=== PATIENT | female | born 1970 | race Caucasian/White ===

== ENCOUNTER 2018-05-08 11:28 | Emergency (ER) | payer OTHER ==
[2018-05-08] MEDS ORDERED: SUCRALFATE 1 GM TABLET ONE (12:14)
[2018-05-08] MEDS ORDERED: SUCRALFATE 1GM/10ML UCUP PO ONE (12:15)
[2018-05-08 12:20] LABS: Absolute Lymphocytes (CBC) 0.8 K/uL (0.7-4.9); Absolute Monocytes 0.5 K/uL (0.1-1.3); Absolute Neutrophil 3.3 K/uL (1.8-8.0); Basophils % 0.5 % (0-1.3); Eosinophils % 1.8 % (0-4.4); Hematocrit 41.8 % (36.0-45.0); MCH 32.1 pg (27.0-35.0); MCV 92.8 fL (80-100); RBC Red Blood Cell Count 4.51 M/uL (3.86-4.86)
--- NOTE | 2018-05-08 12:26 | RAD REPORT ---
EXAM DESCRIPTION: RAD - Chest Single View - 05/08/2018 12:19 pm CLINICAL HISTORY: Chest pain COMPARISON: April 2013 TECHNIQUE: AP portable chest image was obtained 1212 hours . FINDINGS: Lungs are clear. Heart and vasculature are normal. No measurable pleural effusion and no p neumothorax. No acute bony abnormality seen. No acute aortic findings suspected. IMPRESSION: No acute cardiopulmonary process. No significant change from comparison.
[2018-05-08 12:35] LABS: ALT/SGPT 19 U/L (12-78); AST/SGOT 20 U/L (15-37); Albumin 3.5 g/dL (3.4-5.0); Alkaline Phosphatase 54 U/L (45-117); BUN Blood Urea Nitrogen 12 mg/dL (7-18); Bicarbonate 26 mmol/L (21-32); Bilirubin Direct < 0.1 mg/dL (0-0.2); Bilirubin Total 0.3 mg/dL (0.2-1.0); Glucose Level 108 mg/dL (74-106); Lipase 173 U/L (73-393); Potassium 3.3 mmol/L (3.5-5.1); Protein, Total 7.6 g/dL (6.4-8.2); Sodium Level 139 mmol/L (136-145); Troponin (Emerg Dept Use Only) < 0.02 ng/mL (0.0-0.045)
[2018-05-08] MEDS ORDERED: NA CHLORIDE 0.9% 1,000 ML ONE (15:02)
[2018-05-08] MEDS ORDERED: ONDANSETRON 4 MG/2 ML VIAL ONE (15:02)
--- NOTE | 2018-05-08 16:32 | EDPHYS ---
Physician Documentation [facility] Name: Meka Lozano Age: 47 yrs Sex: Female : 1970 Arrival Date: 05/08/2018 Time: 11:30 Bed 15 Private MD: None, None ED Physician Tomi Dutta HPI: 05/08 16:12 This 47 yrs old Female presents to ER via Ambulatory with complaints of Chest gs Pain. 16:12 The patient or guardian reports chest pain that is located primarily in the epigastric gs area. Onset: this morning. The pain does not radiate. Associated signs and symptoms: Pertinent negatives: diaphoresis, shortness of breath. The chest pain is described as burning. Duration: The patient or guardian reports multiple episodes, that are intermittent, that wax and wane, with no pattern, the episodes last approximately 2 minute(s). Modifying factors: The symptoms are alleviated by nothing. the symptoms are aggravated by nothing. Severity of pain: At its worst the pain was moderate in the emergency department the pain has resolved. yesterday this started with vomiting and diarrhea. 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 - Social history:: Smoking status: Patient/guardian denies using tobacco. - Ebola Screening: : No symptoms or risks identified at this time. - Family history:: pertinent for heart disease. ROS: 16:12 All other systems are negative. gs Exam: 16:12 Head/Face: Normocephalic, atraumatic. Eyes: Pupils equal round and reactive to light, gs extra-ocular motions intact. Lids and lashes normal. Conjunctiva and sclera are non-icteric and not injected. Cornea within normal limits. Periorbital areas with no swelling, redness, or edema. ENT: Nares patent. No nasal discharge, no septal abnormalities noted. Tympanic membranes are normal and external auditory canals are clear. Oropharynx with no redness, swelling, or masses, exudates, or evidence of obstruction, uvula midline. Mucous membranes moist. Neck: Trachea midline, no thyromegaly or masses palpated, and no cervical lymphadenopathy. Supple, full range of motion without nuchal rigidity, or vertebral point tenderness. No Meningismus. Chest/axilla: Normal chest wall appearance and motion. Nontender with no deformity. No lesions are appreciated. Cardiovascular: Regular rate and rhythm with a normal S1 and S2. No gallops, murmurs, or rubs. Normal PMI, no JVD. No pulse deficits. Respiratory: Lungs have equal breath sounds bilaterally, clear to auscultation and percussion. No rales, rhonchi or wheezes noted. No increased work of breathing, no retractions or nasal flaring. Abdomen/GI: Soft, non-tender, with normal bowel sounds. No distension or tympany. No guarding or rebound. No evidence of tenderness throughout. Back: No spinal tenderness. No costovertebral tenderness. Full range of motion. Skin: Warm, dry with normal turgor. Normal color with no rashes, no lesions, and no evidence of cellulitis. MS/ Extremity: Pulses equal, no cyanosis. Neurovascular intact. Full, normal range of motion. Neuro: Awake and alert, GCS 15, oriented to person, place, time, and situation. Cranial nerves II-XII grossly intact. Motor strength 5/5 in all extremities. Sensory grossly intact. Cerebellar exam normal. Normal gait. 16:12 Constitutional: The patient appears in no acute distress, alert, awake. 16:12 ECG was reviewed by the Attending Physician. Vital Signs: 11:36 BP 152 / 82; Pulse 96; Resp 16; Temp 98.9(O); Pulse Ox 98% on R/A; Weight 81.65 kg; la1 Height 5 ft. 6 in. (167.64 cm); 12:26 BP 137 / 76; Pulse 82; Resp 17; Pulse Ox 97% on R/A; tw2 13:16 BP 126 / 75; Pulse 73; Resp 20; Pulse Ox 98% on R/A; tw2 14:12 BP 120 / 65; Pulse 72; Resp 18; Pulse Ox 96% on R/A; tw2 15:04 BP 133 / 80; Pulse 70; Resp 17; Pulse Ox 100% on R/A; tw2 16:35 BP 127 / 80; Pulse 68; Resp 17; Pulse Ox 100% on R/A; tw2 11:36 Body Mass Index 29.05 (81.65 kg, 167.64 cm) la1 MDM: 11:49 Patient medically screened. 16:12 Differential diagnosis: acute myocardial infarction, coronary artery disease gs gastroesophageal reflux disease (GERD), pancreatitis, peptic ulcer disease. Data reviewed: vital signs, nurses notes. 16:57 Physician consultation: Jarred Jason MD regarding consult, patient's condition, ekg gs findings, says sent to office on monday. 17:35 Response to treatment: the patient's symptoms have resolved after treatment, the gs patient's pain is gone, the patient's condition has returned to base line. 05/08 12:01 Order name: LFT's 05/08 12:01 Order name: Basic Metabolic Panel 05/08 12:01 Order name: CBC with Diff; Complete Time: 12:39 05/08 12:01 Order name: Troponin (emerg Dept Use Only); Complete Time: 12:39 05/08 12:01 Order name: Lipase; Complete Time: 12:39 05/08 12:01 Order name: Liver (Hepatic) Function; Complete Time: 12:39 EDMS 05/08 12:01 Order name: XRAY Chest (1 view); Complete Time: 12:39 05/08 12:01 Order name: Basic Metabolic Panel; Complete Time: 12:39 EDMS 05/08 14:31 Order name: Troponin (emerg Dept Use Only); Complete Time: 15:58 05/08 14:57 Order name: Urine Microscopic Only; Complete Time: 16:54 05/08 16:37 Order name: Urine Dipstick--Ancillary (enter results); Complete Time: 16:54 05/08 16:37 Order name: Urine --Ancillary (enter results); Complete Time: 16:54 05/08 12:01 Order name: EKG; Complete Time: 12:01 05/08 12:01 Order name: Cardiac monitoring; Complete Time: 12:06 05/08 12:01 Order name: EKG - Nurse/Tech; Complete Time: 12:06 05/08 12:01 Order name: IV Saline Lock; Complete Time: 12:06 05/08 12:01 Order name: Labs collected and sent; Complete Time: 12:06 05/08 12:01 Order name: O2 Per Protocol; Complete Time: 12:06 05/08 12:01 Order name: O2 Sat Monitoring; Complete Time: 12: 05/08 14:57 Order name: Urine Dipstick-Ancillary (obtain specimen); Complete Time: 16:34 gs EC:12 Rate is 92 beats/min. Rhythm is regular. NC interval is normal. QRS interval is normal. gs No Q waves. T waves are Flattened. No ST changes noted. Clinical impression: Abnormal EKG without significant change. Interpreted by me. Administered Medications: 12:40 Drug: CarafATE 1 grams {Note: liquid medication available at this time from pharmacy.} tw2 Route: PO; 13:48 Follow up: Response: No adverse reaction tw2 15:00 Drug: Zofran 4 mg Route: IVP; Site: right antecubital; tw2 16:35 Follow up: Response: No adverse reaction tw2 15:03 Drug: NS 0.9% 1000 ml Route: IV; Rate: 1 bolus; Site: right antecubital; tw2 16:34 Follow up: IV Status: Completed infusion; IV Intake: 1000ml tw2 Disposition: 05/08/18 16:31 Discharged to Home. Impression: Vomiting, Diarrhea, unspecified, Chest pain, unspecified. - Condition is Stable. - Discharge Instructions: Nonspecific Chest Pain, Diarrhea, Adult, Nausea and Vomiting, Adult. - Prescriptions for Pepcid 20 mg Oral Tablet - take 1 tablet by ORAL route every 12 hours for 10 days; 20 tablet. - Work release form, Medication Reconciliation Form, Thank You Letter, Antibiotic Education, Prescription Opioid Use form. - Follow up: Private Physician; When: 1 - 2 days; Reason: Re-evaluation by your physician. - Problem is new. - Symptoms have improved. Signatures: Dispatcher [employer] EDMS Dexter Connors RN RN la1 Lennie Burrell RN RN tw2 Tomi Dutta MD MD Corrections: (The following items were deleted from the chart) 17:15 16:31 05/08/2018 16:31 Discharged to Home. Impression: Vomiting; Diarrhea, unspecified; tw2 Chest pain, unspecified. Condition is Stable. Forms are Work release form, Medication Reconciliation Form, Thank You Letter, Antibiotic Education, Prescription Opioid Use. Follow up: Private Physician; When: 1 - 2 days; Reason: Re-evaluation by your physician. Problem is new. Symptoms have improved. gs
--- NOTE | 2018-05-08 16:32 | ER ---
Nurse's Notes [facility] Name: Meka Lozano Age: 47 yrs Sex: Female : 1970 Arrival Date: 05/08/2018 Time: 11:30 Bed 15 Private MD: None, None Diagnosis: Vomiting;Diarrhea, unspecified;Chest pain, unspecified Presentation: 05/08 11:34 Presenting complaint: Patient states: Yesterday morning I was having nausea and la1 vomiting and this morning I woke up with an intermittent burning sensation in my chest. Transition of care: patient was not received from another setting of care. Onset of symptoms was May 08, 2018. Risk Assessment: Do you want to hurt yourself or someone else? Patient reports no desire to harm self or others. Initial Sepsis Screen: Does the patient meet any 2 criteria? No. Patient's initial sepsis screen is negative. Does the patient have a suspected source of infection? No. Patient's initial sepsis screen is negative. Care prior to arrival: None. 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 - Social history:: Smoking status: Patient/guardian denies using tobacco. - Ebola Screening: : No symptoms or risks identified at this time. - Family history:: pertinent for heart disease. Screenin:42 Abuse screen: Denies threats or abuse. Nutritional screening: No deficits noted. tw2 Tuberculosis screening: No symptoms or risk factors identified. Fall Risk None identified. Assessment: 11:45 General: Appears in no apparent distress. well groomed, Behavior is calm, cooperative, tw2 appropriate for age. Pain: Complains of pain in chest Pain radiates to left arm and neck Pain began 1 day ago. Neuro: Level of Consciousness is awake, alert, obeys commands, Oriented to person, place, time, situation. Cardiovascular: Heart tones S1 S2 Patient's skin is warm and dry. Respiratory: Airway is patent Respiratory effort is even, unlabored, Respiratory pattern is regular, symmetrical, Breath sounds are clear bilaterally. GI: Abdomen is flat, Bowel sounds present X 4 quads. GI: Reports indigestion, nausea. : No signs and/or symptoms were reported regarding the genitourinary system. EENT: No signs and/or symptoms were reported regarding the EENT system. Derm: No signs and/or symptoms reported regarding the dermatologic system. Musculoskeletal: Range of motion: intact in all extremities. 12:26 Reassessment: Patient appears in no apparent distress at this time. No changes from tw2 previously documented assessment. Patient and/or family updated on plan of care and expected duration. Pain level reassessed. Patient is alert, oriented x 3, equal unlabored respirations, skin warm/dry/pink. 13:17 Reassessment: Patient appears in no apparent distress at this time. No changes from tw2 previously documented assessment. Patient and/or family updated on plan of care and expected duration. Pain level reassessed. Patient is alert, oriented x 3, equal unlabored respirations, skin warm/dry/pink. 14:13 Reassessment: Patient appears in no apparent distress at this time. No changes from tw2 previously documented assessment. Patient and/or family updated on plan of care and expected duration. Pain level reassessed. Patient is alert, oriented x 3, equal unlabored respirations, skin warm/dry/pink. pt asking for jello at this time, per provider it is fine to give pt jello. 15:04 Reassessment: Patient appears in no apparent distress at this time. Patient and/or tw2 family updated on plan of care and expected duration. Pain level reassessed. Patient is alert, oriented x 3, equal unlabored respirations, skin warm/dry/pink. pt c/o nausea, provider notified and medicated as ordered. 16:00 Reassessment: Patient appears in no apparent distress at this time. No changes from tw2 previously documented assessment. Patient and/or family updated on plan of care and expected duration. Pain level reassessed. Patient is alert, oriented x 3, equal unlabored respirations, skin warm/dry/pink. 16:41 Reassessment: Patient appears in no apparent distress at this time. No changes from tw2 previously documented assessment. Patient and/or family updated on plan of care and expected duration. Pain level reassessed. Patient is alert, oriented x 3, equal unlabored respirations, skin warm/dry/pink. Dr. Dutta at bedside at this time. 17:13 Reassessment: Patient appears in no apparent distress at this time. No changes from tw2 previously documented assessment. Patient and/or family updated on plan of care and expected duration. Pain level reassessed. Patient is alert, oriented x 3, equal unlabored respirations, skin warm/dry/pink. Patient denies pain at this time. OK to discharge at this time per Dr. Dutta. Vital Signs: 11:36 BP 152 / 82; Pulse 96; Resp 16; Temp 98.9(O); Pulse Ox 98% on R/A; Weight 81.65 kg; la1 Height 5 ft. 6 in. (167.64 cm); 12:26 BP 137 / 76; Pulse 82; Resp 17; Pulse Ox 97% on R/A; tw2 13:16 BP 126 / 75; Pulse 73; Resp 20; Pulse Ox 98% on R/A; tw2 14:12 BP 120 / 65; Pulse 72; Resp 18; Pulse Ox 96% on R/A; tw2 15:04 BP 133 / 80; Pulse 70; Resp 17; Pulse Ox 100% on R/A; tw2 16:35 BP 127 / 80; Pulse 68; Resp 17; Pulse Ox 100% on R/A; tw2 11:36 Body Mass Index 29.05 (81.65 kg, 167.64 cm) la1 ED Course: 11:30 Patient arrived in ED. mr 11:31 None, None is Private Physician. mr 11:35 Triage completed. la1 11:36 Arm band placed on right wrist. la1 11:38 Tomi Dutta MD is Attending Physician. gs 11:41 Lennie Burrell, [place] is Primary Nurse. tw2 11:42 Bed in low position. Call light in reach. monitor and storage bin tender on. Pulse ox on. NIBP on. tw2 11:42 Patient maintains SpO2 saturation greater than 95% on room air. tw2 12:03 EKG done, by avionic technician. reviewed by Tomi Dutta MD. at1 12:14 Placed in gown. Warm blanket given. mh5 12:16 X-ray completed. Portable x-ray completed in exam room. Patient tolerated procedure ml well. 12:18 XRAY Chest (1 view) In Process Unspecified. EDMS 14:23 LFT's Sent. tw2 14:23 Basic Metabolic Panel Sent. tw2 14:44 Inserted butterfly 23g for repeat troponin to right hand at this time. tw2 16:37 Awaiting: awaiting discharge papers at this time with script, Dr. Dutta on phone at tw2 this time, discharge is not complete. 16:52 Awaiting: after conversation with Dr. Dutta, pt would like Dr. Jason to be notified tw2 at this time, DISCHARGE IS STILL PENDING AT THIS TIME. 17:13 No provider procedures requiring assistance completed. IV discontinued, intact, tw2 bleeding controlled, No redness/swelling at site. Pressure dressing applied. Administered Medications: 12:40 Drug: CarafATE 1 grams {Note: liquid medication available at this time from pharmacy.} tw2 Route: PO; 13:48 Follow up: Response: No adverse reaction tw2 15:00 Drug: Zofran 4 mg Route: IVP; Site: right antecubital; tw2 16:35 Follow up: Response: No adverse reaction tw2 15:03 Drug: NS 0.9% 1000 ml Route: IV; Rate: 1 bolus; Site: right antecubital; tw2 16:34 Follow up: IV Status: Completed infusion; IV Intake: 1000ml tw2 Intake: 16:34 IV: 1000ml; Total: 1000ml. tw2 Outcome: 16:31 Discharge ordered by . 17:15 Discharged to home ambulatory. tw2 17:15 Condition: stable 17:15 Discharge instructions given to patient, Instructed on discharge instructions, follow up and referral plans. medication usage, Demonstrated understanding of instructions, follow-up care, medications, Prescriptions given X 1. 17:15 Patient left the ED. tw2 Signatures: Dispatcher [employer] EDOK MonroyNettie mr Martinez, Carmen Nagel, supervising producer EKG Tat1 Dexter Connors RN RN la1 Lennie Burrell RN RN tw2 Camila Rodriges [facility] Tomi Dutta MD MD gs
[2018-05-08 16:46] LABS: Urine Blood 2+ (NEG); Urine Glucose NEGATIVE (NEG); Urine Protein NEGATIVE (NEG)
[2018-05-08 16:46] LABS: Urine Amorphous Sediment 1+ /HPF (NONE SEEN); Urine Bacteria NONE SEEN /HPF (<20); Urine Culture Reflex Order NOT NEEDED
[2018-05-08 17:21] VITALS: TEMP 98.9
[2018-05-08 17:26] VITALS: O2SAT 100
[2018-05-08 17:28] VITALS: BP 127/80
--- NOTE | 2018-05-09 04:42 | EKG ---
Test Date: 2018-05-08 Test Time: 11:51:42 Grinder Set Up Operator Gear Tool: RENATA MEASUREMENT RESULTS: Intervals: Rate: 92 WY: 128 QRSD: 76 QT: 402 QTc: 497 Talmage: P: 23 WY: 128 QRS: 25 T: -16 INTERPRETIVE STATEMENTS: Normal sinus rhythm T wave abnormality, consider inferior ischemia T wave abnormality, consider anterior ischemia Prolonged QT Abnormal ECG Compared to ECG 04/29/2013 07:11:51 T-wave abnormality now present Possible ischemia now present Prolonged QT interval now present Electronically Signed On 05-09-18 04:41:43 CDT by Jarred Jason
== END 2018-05-08 17:15 | disposition home or self-care (01) ==
LOC: ER 11:28
DX: R11.10 Vomiting, unspecified (principal); R19.7 Diarrhea, unspecified; I10 Essential (primary) hypertension
CPT/HCPCS: 36415; 71045; 80048; 80076; 81003; 81015; 81025; 83690; 84484; 85025; 93005; 96361; 96374; 99285; J2405; J7030

== ENCOUNTER 2021-01-24 15:09 | Emergency (ER) | payer OTHER ==
--- OUTSIDE RECORDS SUMMARY | 2021-01-24 15:12 | XMS REPORT | Continuity of Care Document ---
:1970 Author Organization [facility] t Address [address] [place] [address] Care Team Providers Name Role Phone Doctor Unassigned, Name Attending Clinician Unavailable Problems This patient has no known problems. Allergies, Adverse Reactions, Alerts This patient has no known allergies or adverse reactions. Medications This patient has no known medications. Procedures This patient has no known procedures. Encounters Start End Encounter Admission Attending Care Care Encounter Source Date/Time Date/Time Type Type Clinicians Facility Department ID 2020-10-02 2020-10-02 Orders Doctor PERDOMO [id number] 00:00:00 00:00:00 Only UnassignedSYMONE [id number] [place] [facility] [id number] 2020-08-05 2020-08-05 Orders Doctor CONOR [id number] 00:00:00 00:00:00 Only UnassignedSYMONE [id number] [place] [facility] [id number] Results This patient has no known results.
[2021-01-24 15:54] LABS: Urine Blood Trace-lysed (Negative); Urine Glucose Negative (Negative); Urine Protein Negative (Negative); Urine Specific Gravity 1.025 (1.005-1.030)
[2021-01-24 16:09] LABS: Basophils % 0.5 % (0-1.3); Hematocrit 36.4 % (36.0-45.0); Lymphocytes % 37.3 % (15.3-44.8); RBC Red Blood Cell Count 3.97 M/uL (3.86-4.86)
--- NOTE | 2021-01-24 16:09 | RAD REPORT ---
EXAM DESCRIPTION: CT - Abdomen Pelvis W Contrast - 01/24/2021 3:59 pm CLINICAL HISTORY: Abdominal pain COMPARISON: 2008 TECHNIQUE: Computed axial tomography of the abdomen pelvis was obtained. 100 cc Isovue-300 was admin istered intravenously. Oral contrast was not requested which limits evaluation of bowel. All CT scans are performed using dose optimization technique as appropriate and may include automated exposure control or mA/KV adjustment according to patient size. FINDINGS: The liver, spleen, pancreas, and adrenals appear unremarkable. There is no evidence of diverticulitis. Normal appendix. Bilateral renal calculi. Mild left hydronephrosis. 5 millimeter calculus proximal left ureter. Mild d elay concentration of contrast within the left kidney IMPRESSION: 5 millimeter calculus proximal left ureter resulting in mild left hydronephrosis
[2021-01-24 16:25] LABS: ALT/SGPT 29 U/L (12-78); AST/SGOT 26 U/L (15-37); Albumin 3.1 g/dL (3.4-5.0); Alkaline Phosphatase 65 U/L (45-117); BUN Blood Urea Nitrogen 8 mg/dL (7-18); Bicarbonate 26 mmol/L (21-32); Bilirubin Direct < 0.1 mg/dL (0-0.2); Bilirubin Total 0.2 mg/dL (0.2-1.0); Glucose Level 82 mg/dL (74-106); Lipase 103 U/L (73-393); Potassium 3.3 mmol/L (3.5-5.1); Sodium Level 142 mmol/L (136-145)
[2021-01-24] MEDS ORDERED: ONDANSETRON 4 MG/2 ML VIAL ONE ×2 (16:27→18:54)
[2021-01-24] MEDS ORDERED: NA CHLORIDE 0.9% 1,000 ML ONE (16:27)
[2021-01-24] MEDS ORDERED: MORPHINE 4 MG/ML SYR ONE (16:27)
[2021-01-24] MEDS ORDERED: KETOROLAC 30 MG/ML INJ ONE (16:51)
[2021-01-24 17:08] LABS: Urine Specific Gravity/Preg 1.025 (1.005-1.030)
[2021-01-24 17:08] LABS: Urine Bacteria 20-50 /HPF (<20); Urine RBC <5 /HPF (NONE SEEN)
--- NOTE | 2021-01-24 17:18 | ER ---
Nurse's Notes [facility] Name: Meka Lozano Age: 50 yrs Sex: Female : 1970 Arrival Date: 01/24/2021 Time: 15:11 Bed 24 Private MD: Diagnosis: Calculus of kidney with calculus of ureter Presentation: 01/24 15:18 Chief complaint: Patient states: Was diagnosed with UTI Monday, started taking Bactrim ca1 Monday. [place] better but today, been having pain on the L side front and back. 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 Coronavirus screen: Client denies travel out of the [place] in the last 14 days. At this time, the client does not indicate any symptoms associated with coronavirus-19. Ebola Screen: Patient negative for fever greater than or equal to 101.5 degrees Fahrenheit, and additional compatible Ebola Virus Disease symptoms Patient denies exposure to infectious person. Patient denies travel to an Ebola-affected area in the 21 days before illness onset. No symptoms or risks identified at this time. Initial Sepsis Screen: Does the patient meet any 2 criteria? No. Patient's initial sepsis screen is negative. Does the patient have a suspected source of infection? No. Patient's initial sepsis screen is negative. Risk Assessment: Do you want to hurt yourself or someone else? Patient reports no desire to harm self or others. Onset of symptoms was January 24, 2021. 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 - Social history:: Smoking status: Patient denies any tobacco usage or history of. Screenin:33 Abuse screen: Denies threats or abuse. Denies injuries from another. Nutritional zb screening: No deficits noted. Tuberculosis screening: No symptoms or risk factors identified. Fall Risk None identified. Assessment: 15:25 General: Appears uncomfortable, Behavior is calm, cooperative, appropriate for age. zb Pain: Complains of pain in groin, left femoral area and left inguinal area Pain currently is 8 out of 10 on a pain scale. Neuro: Level of Consciousness is awake, alert, obeys commands, Oriented to person, place, time. Cardiovascular: Patient's skin is warm and dry. Respiratory: Airway is patent Respiratory effort is even, unlabored, Respiratory pattern is regular, symmetrical. : Denies pain in left lower quadrant(s) in lower back. Derm: Skin is intact, is healthy with good turgor, Skin is dry, Skin is normal. Musculoskeletal: Range of motion: intact in all extremities. 16:33 Reassessment: Patient appears in no apparent distress at this time. Patient and/or zb family updated on plan of care and expected duration. Pain level reassessed. Patient is alert, oriented x 3, equal unlabored respirations, skin warm/dry/pink. APPEARS TO BE IN PAIN, GIVEN MEDICATION PER ECP. 16:52 Reassessment: ECP at bedside discussing care with patient. zb 17:38 Reassessment: Patient appears in no apparent distress at this time. Patient and/or zb family updated on plan of care and expected duration. Pain level reassessed. Patient is alert, oriented x 3, equal unlabored respirations, skin warm/dry/pink. IV fluid infusing. patient appears to be more comfortable. family at bedside. Reassessment: d/c pending IV medication completion. 18:00 Reassessment: Patient appears in no apparent distress at this time. Patient and/or zb family updated on plan of care and expected duration. Pain level reassessed. Patient is alert, oriented x 3, equal unlabored respirations, skin warm/dry/pink. 18:40 Reassessment: Iv fluid completed. d/c instruction given. c/o nausea. notified ecp zb medication ordered and given. Vital Signs: 15:18 BP 145 / 75; Pulse 73; Resp 18 S; Temp 98.1(TE); Pulse Ox 99% on R/A; Weight 78.02 kg ca1 (R); Height 5 ft. 6 in. (167.64 cm) (R); Pain 6/10; 16:33 BP 145 / 74; Pulse 71; Resp 16; Pulse Ox 100% on R/A; zb 17:37 BP 153 / 77; Pulse 71; Resp 16; Pulse Ox 100% on R/A; zb 18:40 BP 144 / 87; Pulse 88; Resp 16; Pulse Ox 100% on R/A; zb 15:18 Body Mass Index 27.76 (78.02 kg, 167.64 cm) ca1 ED Course: 15:11 Patient arrived in ED. as 15:20 Triage completed. ca1 15:20 Arm band placed on right wrist. ca1 15:25 Annie Orellana, FLORENCE is Primary Nurse. zb 15:27 Fozia Rich FNP-C is PHCP. kb 15:28 Bryson Chapman MD is Attending Physician. kb 15:33 Patient has correct armband on for positive identification. Bed in low position. Call zb light in reach. Pulse ox on. NIBP on. Door closed. Noise minimized. 16:00 CT Abd/Pelvis - IV Contrast Only In Process Unspecified. EDMS 16:30 Initial lab(s) drawn, by me, sent to lab. Inserted saline lock: 20 gauge in right zb antecubital area, using aseptic technique. Blood collected. 17:21 Louie Granados MD is Referral Physician. kb 17:21 Kelvin Salgado MD is Referral Physician. kb 18:41 No provider procedures requiring assistance completed. IV discontinued, intact, zb bleeding controlled, No redness/swelling at site. Pressure dressing applied. Administered Medications: 16:20 Drug: NS 0.9% 1000 ml Route: IV; Rate: 1000 ml; Site: right antecubital; zb 17:37 Follow up: Response: No adverse reaction; IV Status: Completed infusion; IV Intake: zb 1000ml 16:20 Drug: morphine 4 mg {Note: RASS+1.} Route: IVP; Site: right antecubital; zb 17:00 Follow up: Response: No adverse reaction; Marked relief of symptoms; Pain is decreased; zb RASS: Restless (+1) 16:20 Drug: Zofran (Ondansetron) 4 mg Route: IVP; Site: right antecubital; zb 17:00 Follow up: Response: No adverse reaction; Marked relief of symptoms zb 16:31 Drug: Ketorolac 30 mg Route: IVP; Site: right antecubital; zb 17:00 Follow up: Response: No adverse reaction; Marked relief of symptoms; Pain is decreased zb 17:36 Drug: Flomax (tamsulosin) 0.4 mg Route: PO; zb 17:37 Follow up: Response: No adverse reaction; Marked relief of symptoms zb 17:36 Drug: Magnesium Sulfate 1 grams Route: IVPB; Infused Over: 30 mins; Site: right zb antecubital; 18:39 Follow up: Response: No adverse reaction; Marked relief of symptoms; IV Status: zb Completed infusion; IV Intake: 100ml 17:36 Drug: Potassium Chloride 20 mEq Route: PO; zb 18:39 Follow up: Response: No adverse reaction zb 18:39 Drug: Zofran (Ondansetron) 4 mg Route: IVP; Site: right antecubital; zb 18:40 Follow up: Response: Medication administered at discharge. zb Intake: 17:37 IV: 1000ml; Total: 1000ml. zb 18:39 IV: 100ml; Total: 1100ml. zb Outcome: 17:18 Discharge ordered by . kb 18:41 Discharged to home ambulatory. zb 18:41 Condition: stable 18:41 Discharge instructions given to patient, Instructed on discharge instructions, follow up and referral plans. medication usage, Demonstrated understanding of instructions, follow-up care, medications, Prescriptions given X 4. 18:41 Patient left the ED. zb Signatures: Dispatcher [employer] EDFozia Vick, ARTURO MEJIA-Carla Scanlon Cheryl, RN RN ca1 Brown, Zipporah, RN RN zb Corrections: (The following items were deleted from the chart) 15:21 15:20 PSHx: None; ca1 ca1
--- NOTE | 2021-01-24 17:19 | EDPHYS ---
Physician Documentation [facility] Name: Meka Lozano Age: 50 yrs Sex: Female : 1970 Arrival Date: 01/24/2021 Time: 15:11 Bed 24 Private MD: ED Physician Bryson Chapman HPI: 01/24 17:12 This 50 yrs old Female presents to ER via Ambulatory with complaints of Flank kb Pain, Urinary Problem - antibiotics not working. 17:12 The patient complains of pain in the left flank. The pain radiates to the left lower kb quadrant. Onset: The symptoms/episode began/occurred today. Modifying factors: The symptoms are alleviated by nothing. the symptoms are aggravated by nothing. Associated signs and symptoms: The patient has no apparent associated signs or symptoms. Severity of pain: At its worst the pain was moderate in the emergency department the pain is unchanged. The patient has not experienced similar symptoms in the past. The patient has not recently seen a physician. Pt was diagnosed with UTI in [place] on Monday, had urine, blood and CT done. States she started feeling better with antibiotics, but today started having pain on the left side. . 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 - Social history:: Smoking status: Patient denies any tobacco usage or history of. ROS: 17:10 Constitutional: Negative for fever, chills, and weight loss. kb 17:10 : Positive for flank pain, of the left flank. 17:10 All other systems are negative. Exam: 17:12 Constitutional: This is a well developed, well nourished patient who is awake, alert, kb and in no acute distress. Head/Face: Normocephalic, atraumatic. ENT: Moist Mucous membranes Cardiovascular: Regular rate and rhythm with a normal S1 and S2. No gallops, murmurs, or rubs. No pulse deficits. Respiratory: Respirations even and unlabored. No increased work of breathing, no retractions or nasal flaring. Abdomen/GI: Soft, non-tender. No distention Skin: Warm, dry with normal turgor. Normal color. MS/ Extremity: Pulses equal, no cyanosis. Neurovascular intact. Full, normal range of motion. Neuro: Awake and alert, GCS 15, oriented to person, place, time, and situation. Moves all extremities. Normal gait. Psych: Awake, alert, with orientation to person, place and time. Behavior, mood, and affect are within normal limits. 17:12 Back: CVA tenderness, that is moderate, is noted on the left. Vital Signs: 15:18 BP 145 / 75; Pulse 73; Resp 18 S; Temp 98.1(TE); Pulse Ox 99% on R/A; Weight 78.02 kg ca1 (R); Height 5 ft. 6 in. (167.64 cm) (R); Pain 6/10; 16:33 BP 145 / 74; Pulse 71; Resp 16; Pulse Ox 100% on R/A; zb 17:37 BP 153 / 77; Pulse 71; Resp 16; Pulse Ox 100% on R/A; zb 18:40 BP 144 / 87; Pulse 88; Resp 16; Pulse Ox 100% on R/A; zb 15:18 Body Mass Index 27.76 (78.02 kg, 167.64 cm) ca1 MDM: 15:28 Patient medically screened. kb 17:02 Data reviewed: vital signs, nurses notes. Data interpreted: Pulse oximetry: on room air kb is 100 %. Interpretation: normal. Counseling: I had a detailed discussion with the patient and/or guardian regarding: the historical points, exam findings, and any diagnostic results supporting the discharge/admit diagnosis, lab results, radiology results, the need for outpatient follow up, a urologist, to return to the emergency department if symptoms worsen or persist or if there are any questions or concerns that arise at home. 17:02 ED course: Pain is controlled. Pt will call to make appt with urologist tomorrow. kb 17:09 ED course: pt will continue previously prescribed antibiotics. . kb 01/24 15:28 Order name: Basic Metabolic Panel; Complete Time: 16:51 kb 01/24 15:28 Order name: CBC with Diff kb 01/24 15:28 Order name: Hepatic Function; Complete Time: 16:51 kb 01/24 15:28 Order name: Lipase; Complete Time: 16:51 kb 01/24 15:28 Order name: Urine Microscopic Only; Complete Time: 17:09 kb 01/24 15:54 Order name: Urine Dipstick-Ancillary; Complete Time: 15:59 EDMS 01/24 15:28 Order name: CT Abd/Pelvis - IV Contrast Only; Complete Time: 16:15 kb 01/24 16:04 Order name: Urine --Ancillary (enter results) em1 01/24 16:05 Order name: Urine --Ancillary; Complete Time: 17:09 EDMS 01/24 17:09 Order name: Urine Culture EDMS 01/24 15:28 Order name: IV Saline Lock; Complete Time: 15:41 kb 01/24 15:28 Order name: Labs collected and sent; Complete Time: 15:41 kb 01/24 15:28 Order name: Urine Dipstick-Ancillary (obtain specimen); Complete Time: 16:02 kb Administered Medications: 16:20 Drug: NS 0.9% 1000 ml Route: IV; Rate: 1000 ml; Site: right antecubital; zb 17:37 Follow up: Response: No adverse reaction; IV Status: Completed infusion; IV Intake: zb 1000ml 16:20 Drug: morphine 4 mg {Note: RASS+1.} Route: IVP; Site: right antecubital; zb 17:00 Follow up: Response: No adverse reaction; Marked relief of symptoms; Pain is decreased; zb RASS: Restless (+1) 16:20 Drug: Zofran (Ondansetron) 4 mg Route: IVP; Site: right antecubital; zb 17:00 Follow up: Response: No adverse reaction; Marked relief of symptoms zb 16:31 Drug: Ketorolac 30 mg Route: IVP; Site: right antecubital; zb 17:00 Follow up: Response: No adverse reaction; Marked relief of symptoms; Pain is decreased zb 17:36 Drug: Flomax (tamsulosin) 0.4 mg Route: PO; zb 17:37 Follow up: Response: No adverse reaction; Marked relief of symptoms zb 17:36 Drug: Magnesium Sulfate 1 grams Route: IVPB; Infused Over: 30 mins; Site: right zb antecubital; 18:39 Follow up: Response: No adverse reaction; Marked relief of symptoms; IV Status: zb Completed infusion; IV Intake: 100ml 17:36 Drug: Potassium Chloride 20 mEq Route: PO; zb 18:39 Follow up: Response: No adverse reaction zb 18:39 Drug: Zofran (Ondansetron) 4 mg Route: IVP; Site: right antecubital; zb 18:40 Follow up: Response: Medication administered at discharge. zb Disposition Summary: 01/24/21 17:18 Discharge Ordered Location: Home kb Condition: Stable kb Diagnosis - Calculus of kidney with calculus of ureter kb Followup: kb - With: Emergency Department - When: As needed - Reason: Worsening of condition Followup: kb - With: Private Physician - When: 2 - 3 days - Reason: Recheck today's complaints, Continuance of care, Re-evaluation by your physician Followup: kb - With: Louie Granados MD - When: Tomorrow - Reason: Followup: kb - With: Kelvin Salgado MD - When: Tomorrow - Reason: Discharge Instructions: - Discharge Summary Sheet kb - Kidney Stones, [id number] kb - Dietary Guidelines to Help Prevent Kidney Stones kb Forms: - Medication Reconciliation Form kb - Thank You Letter kb - Antibiotic Education kb - Prescription Opioid Use kb Prescriptions: - Flomax 0.4 mg Oral capsule - take 1 capsule by ORAL route once daily for 10 days; 10 capsule; Refills: 0, kb Product Selection Permitted - Zofran 4 mg Oral Tablet - take 1 tablet by ORAL route every 6 hours As needed; 20 tablet; Refills: 0, kb Product Selection Permitted - Diclofenac Sodium 75 mg Oral tablet,delayed release (DR/EC) - take 1 tablet by ORAL route 2 times per day As needed; 30 tablet; Refills: 0, kb Product Selection Permitted - Tramadol 50 mg Oral Tablet - take 1 tablet by ORAL route every 8 hours as needed; 12 tablet; Refills: 0, kb Product Selection Permitted Signatures: Dispatcher [employer] Fozia Rasmussen, Chel Ayon RN RN Annie Fisher RN RN zb Corrections: (The following items were deleted from the chart) 15:21 15:20 PSHx: None; ca1 ca1
[2021-01-24] MEDS ORDERED: TAMSULOSIN 0.4 MG SR CAP ONE (17:30)
[2021-01-24] MEDS ORDERED: MAGNESIUM SULFATE 1 gm IVPB 1 GM/100 ML BAG IV ONE (17:31)
[2021-01-24] MEDS ORDERED: POTASSIUM CL SA 10 MEQ TAB PO ONE (17:40)
[2021-01-24 18:50] VITALS: TEMP 98.1
[2021-01-24 18:52] VITALS: O2SAT 100
[2021-01-24 18:55] VITALS: BP 144/87
[2021-01-24 19:35] LABS: White Blood Cell Scan OK (OK)
[2021-01-24 19:36] LABS: Blood Morphology Comment NOT SEEN (NOT SEEN); Platelet Estimate ADEQ
== END 2021-01-24 18:41 | disposition home or self-care (01) ==
LOC: ER 15:09
DX: N20.2 Calculus of kidney with calculus of ureter (principal); I10 Essential (primary) hypertension
CPT/HCPCS: 96365; 96361; 87088; 85025; 87086; 80048; 36415; 81025; 82565; 80076; 83690; 74177; 96375; 99284; Q9967; J3475; J7030; J2405 ×2; 81003; 81015